=== PATIENT | female | born 1980 | race Caucasian/White ===

== ENCOUNTER 2018-01-04 16:17 | Emergency (ER) | payer MEDICAID ==
[~2018-01-04] VITALS: Ht 167.6 cm; Wt 56.7 kg
[2018-01-04] MEDS ORDERED: LORazepam 1MG TABLET PO ONE (16:30)
[2018-01-04] MEDS ORDERED: LORazepam 1MG TABLET ONE (17:01)
[2018-01-04 17:20] LABS: BASOPHILS # (AUTO) 0.03 x10^3/uL (0-0.1); BASOPHILS % (AUTO) 0 % (0-1); EOSINOPHILS % (AUTO) 1 % (1-7); LYMPHOCYTES # (AUTO) 1.17 x10^3/uL (1-3.4); LYMPHOCYTES % (AUTO) 14 % (22-44); MD NO; MEAN CORPUSCULAR HEMOGLOBIN 31.7 pg (27.0-34.8); MEAN CORPUSCULAR HGB CONC 33.5 g/dL (32.4-35.8); MEAN CORPUSCULAR VOLUME 94.6 fL (80-100); MEAN PLATELET VOLUME 8.4 fL (7.4-10.4); MONOCYTES # (AUTO) 0.52 x10^3/uL (0.2-0.8); MONOCYTES % (AUTO) 6 % (2-9); NEUTROPHILS # (AUTO) 6.29 x10^3/uL (1.8-6.8); NEUTROPHILS % (AUTO) 78 % (42-75); PLATELET COUNT 302 x10^3/uL (130-400); RED BLOOD COUNT 4.15 x10^6/uL (3.82-5.3); RED CELL DISTRIBUTION WIDTH 12.7 % (9.6-15.2)
[2018-01-04] MEDS ORDERED: ALUMINUM/MAG/SIMETHICONE 30 ML UDC PO PRN (17:30)
[2018-01-04 17:32] LABS: ALBUMIN 3.4 g/dL (3.4-5.0); ANION GAP 5 mmol/L (5-15); CALCIUM 8.2 mg/dL (8.5-10.1); CHLORIDE 108 mmol/L (98-107); CREATININE 0.82 mg/dL (0.55-1.02)
[2018-01-04 17:36] LABS: TROPONIN I < 0.015 ng/mL (0.000-0.045)
[2018-01-04] MEDS ORDERED: ALUMINUM/MAG/SIMETHICONE 30 ML UDC ONE (18:05)
[2018-01-04 18:07] VITALS: BP 106/73
== END 2018-01-04 19:20 | disposition home or self-care (01) ==
LOC: ED 18:16
DX: R07.2 Precordial pain (principal); Z98.51 Tubal ligation status
CPT/HCPCS: 36415; 71046; 80048; 82040; 84484; 85025; 93005; 99285

== ENCOUNTER 2018-02-14 09:08 | Emergency (ER) | payer MEDICAID ==
[~2018-02-14] VITALS: Ht 167.6 cm; Wt 57.7 kg
[2018-02-14 09:15] VITALS: BP 120/75
[2018-02-14 10:02] LABS: MICROSCOPIC AUTO
[2018-02-14 10:11] LABS: CULTURE INDICATED? YES
== END 2018-02-14 10:54 ==
LOC: ED 09:40
DX: N30.00 Acute cystitis without hematuria (principal); F17.200 Nicotine dependence, unspecified, uncomplicated; F41.9 Anxiety disorder, unspecified
CPT/HCPCS: 81001; 87077; 87086; 87186; 87491; 87591; 99284